=== PATIENT | female | born 1960 | race African-American/Black ===

== ENCOUNTER 2023-01-21 04:20 | Day surgery (SDC) | payer OTHER ==
[2023-01-20 11:36] VITALS: BMI 30.7
[2023-01-21 10:00] VITALS: TEMP 98.2
[2023-01-21 10:29] VITALS: PULSE 77; RESP 18
[2023-01-21 12:31] VITALS: BP 134/67
== END 2023-01-21 10:40 | disposition home or self-care (01) ==
LOC: JASU-ENDO 04:20
PROVIDERS: ATTEND Internal Medicine Gastroenterology
PROC: 0DBL8ZX Excision of Transverse Colon, Via Natural or Artificial Opening Endoscopic, Diagnostic (ICD-10-PCS; 2023-01-21)
PROC: 0DBP8ZX Excision of Rectum, Via Natural or Artificial Opening Endoscopic, Diagnostic (ICD-10-PCS; principal; 2023-01-21 10:00)
DX: Z12.11 Encounter for screening for malignant neoplasm of colon (principal); D12.3 Benign neoplasm of transverse colon; D12.8 Benign neoplasm of rectum; K57.30 Diverticulosis of large intestine without perforation or abscess without bleeding
CPT/HCPCS: 88305-TC